=== PATIENT | female | born 1955 | race Caucasian/White ===

== ENCOUNTER 2017-03-31 13:45 | Inpatient (IN) | payer OTHER ==
[2017-03-31] MEDS ORDERED: MORPHINE SULFATE 4 MG/ML SYRINGE IV STA (14:28)
[2017-03-31] MEDS ORDERED: SODIUM CHLORIDE 0.9% 1,000 ML IV ONE (14:28)
[2017-03-31] MEDS ORDERED: IV VANCOMYCIN PER PHARMACY 1 EACH MISC MISCELLANE PRN (14:29)
[2017-03-31] MEDS ORDERED: PIPERACILLIN-TAZOBACTAM 3.375 GM in DEXTROSE/WATER 1 50ML.BAG IVPB STA (14:29)
--- NOTE | 2017-03-31 14:51 | ED ---
Skin/Abscess/FB HPI - General Chief complaint: Skin/Abscess/Foreign Body Stated complaint: Cyst on back Time Seen by Provider: 03/31/17 14:16 Source: patient, RN notes reviewed, old records reviewed Mode of arrival: ambulatory Limitations: no limitations - History of Present Illness Initial comments: Patient is 62-year-old female presenting to the emergency Department chief complaint of abscess over her back for the past 2 weeks. She was seen by her primary care provider Dr. Mcdonough and he did an incision and drainage last Monday. He put her on Bactrim DS. She reports she is taking antibiotics however the abscess is getting somewhat smaller but continued to drain and not getting that much better. Patient went to her primary care doctor earlier today and they sent her here to be admitted for IV antibiotic. Patient has no fever denies any other symptoms besides the pain from the abscess. - Related Data Home Medications Medication Instructions Recorded Confirmed Sulfamethox-Tmp 800-160Mg [Bactrim 1 tab PO Q12HR 03/31/17 03/31/17 DS 800-160 mg] Allergies Allergy/AdvReac Type Severity Reaction Status Date / Time No Known Allergies Allergy Verified 03/31/17 14:14 Review of Systems ROS Statement: Those systems with pertinent positive or pertinent negative responses have been documented in the HPI. ROS Other: All systems not noted in ROS Statement are negative. Past Medical History Past Medical History: No Reported History History of Any Multi-Drug Resistant Organisms: None Reported, MRSA Date of last positivie culture/infection: 03/22/17 MDRO Source:: Buttock Past Surgical History: Section Additional Past Surgical History / Comment(s): ear Past Psychological History: No Psychological Hx Reported Smoking Status: Never smoker Past Alcohol Use History: None Reported Past Drug Use History: None Reported General Exam - General Exam Comments Initial Comments: This is a 62-year-old female. Patient does not appear to be in any acute distress. Limitations: no limitations General appearance: alert, in no apparent distress Head exam: Present: atraumatic, normocephalic, normal inspection Eye exam: Present: normal appearance, PERRL, EOMI. Absent: scleral icterus, conjunctival injection, periorbital swelling ENT exam: Present: normal exam, mucous membranes moist Neck exam: Present: normal inspection. Absent: tenderness, meningismus, lymphadenopathy Respiratory exam: Present: normal lung sounds bilaterally. Absent: respiratory distress, wheezes, rales, rhonchi, stridor Cardiovascular Exam: Present: regular rate, normal rhythm, normal heart sounds. Absent: systolic murmur, diastolic murmur, rubs, gallop, clicks GI/Abdominal exam: Present: soft, normal bowel sounds. Absent: distended, tenderness, guarding, rebound, rigid Extremities exam: Present: normal inspection, full ROM, normal capillary refill. Absent: tenderness, pedal edema, joint swelling, calf tenderness Back exam: Present: other (Patient has a large abscess over the left thoracic spine area measuring approximately 5 cm x 5 cm. Abscess is actively draining.) Neurological exam: Present: alert, oriented X3, CN II-XII intact Psychiatric exam: Present: normal affect, normal mood Skin exam: Present: warm, dry, intact, normal color. Absent: rash Course Vital Signs 03/31/17 03/31/17 13:49 15:02 Temperature 99 F 98.2 F Pulse Rate 68 67 Respiratory 18 18 Rate Blood Pressure 119/67 121/71 O2 Sat by Pulse 98 100 Oximetry Medical Decision Making - Medical Decision Making Patient is 62-year-old female presenting to the emergency Department chief complaint of abscess over her back for the past 2 weeks. She was seen by her primary care provider Dr. Mcdonough and he did an incision and drainage last Monday. He put her on Bactrim DS. She reports she is taking antibiotics however the abscess is getting somewhat smaller but continued to drain and not getting that much better. Patient went to her primary care doctor earlier today , they reopen the abscess again, and they sent her here to be admitted for IV antibiotic. Patient does have a significant abscess over the left side of the thoracic back measuring approximately 5 cm x 5 cm. Patient did receive a wound culture here. I did review her previous wound cultures which did grow positive for MRSA. Patient has been started on Zosyn and vancomycin dosed by pharmacy. We will continue the patient on vancomycin. Patient was also given 4 mg of morphine for pain. Discusses is Dr. Quigley whom discussed with Dr. Em. At this time we will have admitting physician decide if surgery needs be consult it as it is actively draining. Disposition Clinical Impression: Back abscess, MRSA infection Disposition: ADMITTED IP TO THIS HOSP Condition: Stable Referrals: Katarina Mcdonough DO [Primary Care Provider] - 1-2 days Time of Disposition: 15:03
[2017-03-31] MEDS ORDERED: VANCOMYCIN 1,000 MG in SODIUM CHLORIDE 0.9% 250 ML IVPB ONE (15:00)
[2017-03-31] MEDS ORDERED: LORazepam 2 MG/ML SYRINGE IV PRN (15:03)
[2017-03-31] MEDS ORDERED: KETOROLAC 30 MG/ML 1 ML VIAL IVP PRN (15:03)
[2017-03-31] MEDS ORDERED: NALOXONE 0.4 MG/ML 1 ML VIAL IV PRN (15:03)
[2017-03-31] MEDS ORDERED: ACETAMINOPHEN TAB 325 MG TAB PO PRN (15:03)
[2017-03-31] MEDS ORDERED: ONDANSETRON 4 MG/2 ML VIAL IVP PRN (15:03)
[2017-03-31] MEDS ORDERED: MORPHINE SULFATE 4 MG/ML SYRINGE IV PRN (15:03)
[2017-03-31 15:12] LABS: Basophils # (A) 0.1 k/uL (0-0.2); Basophils % (A) 1 %; CH 31.5; CHCM 34.5; Eosinophils % (A) 1 %; HCT 43.7 % (34.0-46.0); HDW 2.68; HGB 14.5 gm/dL (11.4-16.0); Luc # (Auto) 0.18; Luc % (Auto) 2; Lymphocytes # (A) 1.9 k/uL (1.0-4.8); Lymphocytes % (A) 20 %; MCH 30.4 pg (25.0-35.0); MCHC 33.2 g/dL (31.0-37.0); MCV 91.7 fL (80.0-100.0); Mean Platelet Volume 7.7; Monocytes # (A) 0.4 k/uL (0-1.0); Monocytes % (A) 4 %; Neutrophils # (A) 7.3 k/uL (1.3-7.7); Neutrophils % (A) 74 %; RBC 4.76 m/uL (3.80-5.40); RDW 12.9 % (11.5-15.5); WBC 9.8 k/uL (3.8-10.6)
[2017-03-31 15:16] LABS: ALT 37 U/L (9-52); AST 22 U/L (14-36); Alkaline Phosphatase 136 U/L (38-126); Anion Gap 13 mmol/L; Blood Urea Nitrogen 12 mg/dL (7-17); Calcium 9.8 mg/dL (8.4-10.2); Carbon Dioxide 25 mmol/L (22-30); Chloride 99 mmol/L (98-107); Glucose 333 mg/dL (74-99); Non-African American GFR(MDRD) >60 (>60 ml/min/1.73 sqM); Sodium 137 mmol/L (137-145); Total Bilirubin 0.4 mg/dL (0.2-1.3); Total Protein 7.4 g/dL (6.3-8.2)
[2017-03-31 17:07] LABS: Glucose,Whole Blood 289 mg/dL (75-99)
[2017-03-31] MEDS: SODIUM CHLORIDE 0.9% 1,000 ML IV SCH ×2 (17:11→23:34)
[2017-03-31] MEDS ORDERED: INSULIN LISPRO (humaLOG) 300 UNIT/3 ML VIAL SQ ONE (17:38)
[2017-03-31] MEDS ORDERED: TEMAZEPAM 15 MG CAP PO PRN (18:37)
[2017-03-31] MEDS: INSULIN LISPRO (humaLOG) 300 UNIT/3 ML VIAL SQ SCH (21:01)
[2017-03-31] MEDS: HEPARIN SODIUM,PORCINE 5,000 UNIT/ML 1 ML VIAL SQ SCH (21:01)
[2017-03-31 21:06] LABS: Glucose,Whole Blood 217 mg/dL (75-99)
[2017-03-31] MEDS: VANCOMYCIN 750 MG in SODIUM CHLORIDE 0.9% 250 ML IVPB SCH (21:15)
[2017-04-01] MEDS: VANCOMYCIN 750 MG in SODIUM CHLORIDE 0.9% 250 ML IVPB SCH (05:08)
[2017-04-01 06:48] LABS: Glucose,Whole Blood 200 mg/dL (75-99)
[2017-04-01] MEDS: PANTOPRAZOLE 40 MG TABLET PO SCH (07:26)
[2017-04-01] MEDS: HEPARIN SODIUM,PORCINE 5,000 UNIT/ML 1 ML VIAL SQ SCH ×2 (07:26→21:09)
[2017-04-01] MEDS: INSULIN LISPRO (humaLOG) 300 UNIT/3 ML VIAL SQ SCH ×4 (07:27→21:08)
[2017-04-01 08:18] LABS: Basophils % (A) 0 %; CHCM 33.8; Eosinophils # (A) 0.1 k/uL (0-0.7); Eosinophils % (A) 2 %; HDW 2.72; HGB 12.8 gm/dL (11.4-16.0); Luc # (Auto) 0.14; Luc % (Auto) 2; Lymphocytes # (A) 1.3 k/uL (1.0-4.8); Lymphocytes % (A) 15 %; MCH 30.9 pg (25.0-35.0); MCHC 33.5 g/dL (31.0-37.0); MCV 92.2 fL (80.0-100.0); Monocytes # (A) 0.3 k/uL (0-1.0); Monocytes % (A) 4 %; Neutrophils # (A) 6.3 k/uL (1.3-7.7); Neutrophils % (A) 77 %; RBC 4.12 m/uL (3.80-5.40); RDW 12.3 % (11.5-15.5); WBC 8.2 k/uL (3.8-10.6); WBC (Perox) 8.55
[2017-04-01 08:37] LABS: Anion Gap 8 mmol/L; Blood Urea Nitrogen 10 mg/dL (7-17); Calcium 8.1 mg/dL (8.4-10.2); Carbon Dioxide 22 mmol/L (22-30); Chloride 108 mmol/L (98-107); Glucose 191 mg/dL (74-99); Non-African American GFR(MDRD) >60 (>60 ml/min/1.73 sqM); Potassium 4.5 mmol/L (3.5-5.1); Sodium 138 mmol/L (137-145)
--- NOTE | 2017-04-01 09:47 | HP ---
CHIEF COMPLAINTS: Pain and swelling of the back. HISTORY OF PRESENT ILLNESS: This 62-year-old woman with past medical history of multiple medical problems including bronchitis, history of previous MRSA leg infection being followed by Dr. Mcdonough in the outpatient setting was noted to have infection of the back for the last several days. Because of lack of improvement patient went to Dr. Painting office and from Dr. Painting office the patient was directly admitted to [facility] and admitted for further evaluation and treatment. There is no history of fever, rigors. No history of headache, loss of consciousness or seizures. The patient has taken a course of Bactrim. The blood sugar was found to be 333. Hemoglobin A1c was not available. The patient also weighing only 42 pounds and BMI is 18.4. Weight loss is rather gradual according to the family. PAST MEDICAL HISTORY: History of bronchitis, history of MRSA. MEDICATIONS: Bactrim DS 1 p.o. b.i.d. ALLERGIES: None. FAMILY HISTORY: History of dementia in the family. SOCIAL HISTORY: Previous history of smoking. REVIEW OF SYSTEMS: ENT: No diminished hearing or vision. CARDIOVASCULAR: No angina. RESPIRATORY: No shortness of breath, no cough. GI: No nausea. : As mentioned earlier. NERVOUS SYSTEM: No numbness or weakness. ALLERGY/IMMUNOLOGY: No asthma or hayfever. MUSCULOSKELETAL: As mentioned earlier. HEMATOLOGY/ONCOLOGY: No history of anemia. ENDOCRINE: No history of diabetes or hypothyroidism. CONSTITUTIONAL: As mentioned earlier. DERMATOLOGY: Negative. RHEUMATOLOGY: Negative. PSYCHIATRY: As mentioned earlier. PHYSICAL EXAMINATION: The patient is alert and oriented x3. Pulse is 62, blood pressure 111/64, respirations 18, temperature 97.1, pulse ox 99% on room air. HEENT: Conjunctivae normal. NECK: No jugular venous distention. CARDIOVASCULAR: S1, S2. RESPIRATORY: Breath sounds diminished at the bases. A few scattered rhonchi and crackles. ABDOMEN: Soft, nontender, no mass palpable. LEGS: No edema, no swelling. NERVOUS SYSTEM: Higher function as mentioned. Moves all four limbs. Mild diffuse weakness. Mild diffuse wasting also present. SKIN: Left mid-back area rather hard mass with opening on the top with erythematous and no fluctuance, some discharge, is severely tender. Mass present. LYMPHATICS: No lymphadenopathy in the neck, axillae or groin. JOINTS: No active deforming arthropathy. LABS: CBC showed platelets 479, glucose 133. ASSESSMENT: 1. Left back abscess. 2. Diabetes type 2, possibly new onset. 3. Severe protein calorie malnutrition with BMI 18.4. 4. History of bronchitis. RECOMMENDATIONS AND DISCUSSION: In this 62-year-old woman who presented with multiple complex medical issues, we well monitor the patient closely. Continue the current medications. Continue symptomatic treatment. Will initiate broad- spectrum IV antibiotics. The patient is started on vancomycin and Zosyn. Will obtain cultures, blood cultures, pain medications, otherwise repeat labs. DVT prophylaxis. Otherwise symptomatic treatment also will be provided. Guarded prognosis because of multiple complex medical issues. Further recommendations to follow. I would also check hemoglobin A1c, Accu-Cheks a.c. and at bedtime and insulin to scale as well. Will obtain possibly dairy inspector consult as well. Guarded prognosis. Further recommendations to follow. See orders for details. MTDD
[2017-04-01] MEDS: SODIUM CHLORIDE 0.9% 1,000 ML IV SCH ×2 (10:36→21:07)
[2017-04-01 11:59] LABS: Glucose,Whole Blood 235 mg/dL (75-99)
[2017-04-01 12:34] LABS: Hemoglobin A1C 14.3 % (4.2-6.1)
--- NOTE | 2017-04-01 13:04 | P.CONS ---
History of Present Illness - Reason for Consult Consult date: 04/01/17 - Chief Complaint Abscess of back - History of Present Illness 62-year-old female presents to Hospital with a significant lesion that has developed on her back. Painful swelling with a copious amount of drainage. Her related that become worse and constant which she sought care. She was seen by her primary care physician and was directed to hospital. She's now been admitted receiving antibiotic therapy in the infectious disease consult was requested. The patient is a history of tobacco use. She is a very thin slight build. She relates that she tries to eat. She was a site is uncomfortable especially manipulation. She is not having high-grade fever chill rigor sweats but does not feel well. She is unable to lay on the back because it hurts because of the abscess. Review of Systems 62-year-old woman of a thin slight build HEENT:Denies headache or acute visual change. Denies sinus or mouth discomforts. Denies neck stiffness or pain. Denies significant oral cavity pain. Denies difficulty on swallowing. Full dentures Lungs: Chronic cough without sputum production or hemoptysis shortness of breath is at baseline Cardiovascular: Denies significant shortness of breath, chest pain, chest wall pain, orthopnea, dyspnea on exertion, syncope Gastrointestinal:Denies nausea, vomiting, diarrhea, constipation, hematemesis, melena, hematochezia. No no significant change of bowel habit noticed. Musculoskeletal: denies significant myalgias or arthralgias. No new joint swelling. Denies new back pain. Skin: HPI abscess to her back Neuro: Denies headache or visual change. Denies any new onset weakness or difficulty with ambulation. Denies falls or seizures. Psychiatric:Denies anxiety or depression. Endocrine: Denies significant fatigue, denies significant weight loss or weight gain. Past Medical History Past Medical History: No Reported History Additional Past Medical History / Comment(s): BRONCHITIS, "ABCESS ON BACK" History of Any Multi-Drug Resistant Organisms: None Reported, MRSA Year Discovered:: 03/22/17 MDRO Source:: Buttock Past Surgical History: Section, Tonsillectomy Additional Past Surgical History / Comment(s): ear, I&D ABCESS ON BACK, X2 C- SEC Past Anesthesia/Blood Transfusion Reactions: No Reported Reaction Additional Psychological History / Comment(s): lives with her . Stopped smoking 4 years ago. Denied recreational drug use. no travel. No animal exposures. No experience Smoking Status: Former smoker - Past Family History Mother Family Medical History: Dementia Father Family Medical History: Cancer Medications and Allergies Home Medications and Allergies Comment(s): Current Medications Acetaminophen (Tylenol Tab) 650 mg PO Q6HR PRN PRN Reason: Mild Pain or Fever > 100.5 Alprazolam (Xanax) 0.25 mg PO TID PRN PRN Reason: Anxiety Heparin Sodium (Porcine) (Heparin) 5,000 unit SQ Q12HR [facility] Last Admin: 04/01/17 07:26 Dose: 5,000 unit Sodium Chloride (Saline 0.9%) 1,000 mls @ 100 mls/hr IV .Q10H [facility] Last Admin: 04/01/17 10:36 Dose: Not Given Daptomycin 500 mg/ Sodium (Chloride) 50 mls @ 100 mls/hr IV Q24H [facility] Insulin Human Lispro (Humalog) 0 unit SQ ACHS [facility] PRN Reason: Protocol Last Admin: 04/01/17 12:37 Dose: 3 unit Ketorolac Tromethamine (Toradol) 30 mg IVP Q6HR PRN PRN Reason: Moderate Pain Stop: 04/05/17 15:04 Lorazepam (Ativan) 0.5 mg IV Q6HR PRN PRN Reason: Anxiety Morphine Sulfate (Morphine Sulfate (Inj)) 4 mg IV Q4HR PRN PRN Reason: Severe Pain Multivitamins (Theragran) 1 each PO DAILY@1200 PAULETTE Naloxone HCl (Narcan) 0.2 mg IV Q2M PRN PRN Reason: Opioid Reversal Ondansetron HCl (Zofran) 4 mg IVP Q8HR PRN PRN Reason: Nausea And Vomiting Pantoprazole Sodium (Protonix) 40 mg PO AC-BRKFST [facility] Last Admin: 04/01/17 07:26 Dose: 40 mg Temazepam (Restoril) 15 mg PO HS PRN PRN Reason: Insomnia Home Medications Medication Instructions Recorded Confirmed Type Sulfamethox-Tmp 800-160Mg [Bactrim 1 tab PO Q12HR 03/31/17 03/31/17 History DS 800-160 mg] Allergies Allergy/AdvReac Type Severity Reaction Status Date / Time No Known Allergies Allergy Verified 03/31/17 14:14 Physical Exam Vitals: Vital Signs Temp Pulse Pulse Resp BP BP BP 04/01/17 07:00 97.7 F 67 20 124/69 03/31/17 23:00 98.1 F 67 18 107/41 03/31/17 16:40 97.1 F L 62 18 111/65 03/31/17 15:02 98.2 F 67 18 121/71 03/31/17 13:49 99 F 68 18 119/67 Pulse Ox 04/01/17 07:00 99 03/31/17 23:00 96 03/31/17 16:40 99 03/31/17 15:02 100 03/31/17 13:49 98 Intake and Output 03/31/17 04/01/17 04/01/17 22:59 06:59 14:59 Intake Total 400 Balance 400 Intake: Oral 400 Other: Voiding Method Toilet Toilet # Voids 1 62-year-old woman of a slight build HEENT: Anicteric conjunctiva are pink and moist nasal mucosa grossly intact without significant lesions, there is no thrush. Full denture in place no thrush Neck: The neck is supple without significant lymphadenopathy or thyromegaly. Lungs: Symmetrical air entry. Scattered wheezes are noted. No bronchial sounds. No dullness or egophony. Heart: Regular rate and rhythm with an audible S1-S2, no S3 no S4. There is no significant murmur click or rub, PMI was nondisplaced. Abdomen: Positive bowel sounds soft and nontender without palpable masses or organomegaly. There was no guarding or rebound. Extremities: The upper extremities have excellent pulses they are symmetric, no significant petechiae or telangiectasia. No splinter hemorrhages were noted. The lower extremities are free from significant edema. The peripheral pulses were 2+ and symmetric. Neuro: Awake alert oriented to person place and time. There are no acute new gross focal sensory motor deficits. Skin: Reveals evidence of the abscess to the midportion of the spine to the lateral aspect. The large indurated area that is fluctuant. It is tender when the print material is expressed. There is some surrounding erythema. No other lesions are seen. Results CBC & Chem 7: 04/01/17 07:24 04/01/17 07:24 Labs: Abnormal Lab Results - Last 24 Hours (Table) 03/31/17 03/31/17 03/31/17 Range/Units 14:50 14:50 14:50 Plt Count 479 H (150-450) k/uL Chloride (98-107) mmol/L Creatinine 0.50 L (0.52-1.04) mg/dL Glucose 333 H (74-99) mg/dL POC Glucose (mg/dL) (75-99) mg/dL Hemoglobin A1c 14.3 H (4.2-6.1) % Calcium (8.4-10.2) mg/dL Alkaline Phosphatase 136 H (38-126) U/L 03/31/17 03/31/17 04/01/17 Range/Units 17:02 20:48 06:47 Plt Count (150-450) k/uL Chloride (98-107) mmol/L Creatinine (0.52-1.04) mg/dL Glucose (74-99) mg/dL POC Glucose (mg/dL) 289 H 217 H 200 H (75-99) mg/dL Hemoglobin A1c (4.2-6.1) % Calcium (8.4-10.2) mg/dL Alkaline Phosphatase (38-126) U/L 04/01/17 04/01/17 Range/Units 07:24 11:57 Plt Count (150-450) k/uL Chloride 108 H (98-107) mmol/L Creatinine 0.46 L (0.52-1.04) mg/dL Glucose 191 H (74-99) mg/dL POC Glucose (mg/dL) 235 H (75-99) mg/dL Hemoglobin A1c (4.2-6.1) % Calcium 8.1 L (8.4-10.2) mg/dL Alkaline Phosphatase (38-126) U/L Microbiology - Last 24 Hours (Table) 03/31/17 14:25 Gram Stain - Preliminary Back Wound Culture - Preliminary Presumptive MRSA Laboratory Results WBC 8.2 k/uL (3.8-10.6) 04/01/17 07:24 RBC 4.12 m/uL (3.80-5.40) 04/01/17 07:24 Hgb 12.8 gm/dL (11.4-16.0) 04/01/17 07:24 Hct 38.0 % (34.0-46.0) 04/01/17 07:24 MCV 92.2 fL (80.0-100.0) 04/01/17 07:24 MCH 30.9 pg (25.0-35.0) 04/01/17 07:24 MCHC 33.5 g/dL (31.0-37.0) 04/01/17 07:24 RDW 12.3 % (11.5-15.5) 04/01/17 07:24 Plt Count 356 k/uL (150-450) 04/01/17 07:24 Neutrophils % 77 % 04/01/17 07:24 Lymphocytes % 15 % 04/01/17 07:24 Monocytes % 4 % 04/01/17 07:24 Eosinophils % 2 % 04/01/17 07:24 Basophils % 0 % 04/01/17 07:24 Neutrophils # 6.3 k/uL (1.3-7.7) 04/01/17 07:24 Lymphocytes # 1.3 k/uL (1.0-4.8) 04/01/17 07:24 Monocytes # 0.3 k/uL (0-1.0) 04/01/17 07:24 Eosinophils # 0.1 k/uL (0-0.7) 04/01/17 07:24 Basophils # 0.0 k/uL (0-0.2) 04/01/17 07:24 Sodium 138 mmol/L (137-145) 04/01/17 07:24 Potassium 4.5 mmol/L (3.5-5.1) 04/01/17 07:24 Chloride 108 mmol/L (98-107) H 04/01/17 07:24 Carbon Dioxide 22 mmol/L (22-30) 04/01/17 07:24 Anion Gap 8 mmol/L 04/01/17 07:24 BUN 10 mg/dL (7-17) 04/01/17 07:24 Creatinine 0.46 mg/dL (0.52-1.04) L 04/01/17 07:24 Est GFR (MDRD) Af Amer >60 (>60 ml/min/1.73 sqM) 04/01/17 07:24 Est GFR (MDRD) Non-Af >60 (>60 ml/min/1.73 sqM) 04/01/17 07:24 Glucose 191 mg/dL (74-99) H 04/01/17 07:24 POC Glucose (mg/dL) 235 mg/dL (75-99) H 04/01/17 11:57 POC Glu Executive Personal Assistant ID Dory Chu 04/01/17 11:[address] Glu mg/dL 364 mg/dL 03/31/17 14:50 Hemoglobin A1c 14.3 % (4.2-6.1) H 03/31/17 14:50 Calcium 8.1 mg/dL (8.4-10.2) L 04/01/17 07:24 Total Bilirubin 0.4 mg/dL (0.2-1.3) 03/31/17 14:50 AST 22 U/L (14-36) 03/31/17 14:50 ALT 37 U/L (9-52) 03/31/17 14:50 Alkaline Phosphatase 136 U/L (38-126) H 03/31/17 14:50 Total Protein 7.4 g/dL (6.3-8.2) 03/31/17 14:50 Albumin 4.0 g/dL (3.5-5.0) 03/31/17 14:50 Microbiology 03/31/17 14:25 Back Gram Stain - Preliminary 03/31/17 14:25 Back Wound Culture - Preliminary Presumptive MRSA Assessment and Plan (1) MRSA infection Narrative/Plan: 62-year-old female presents to Hospital with significant new abscess formation to her back. Despite some local wound care was worsening. She seen by her primary care physician directed to the hospital. Upon arrival there is evidence of unknown diabetes mellitus that is uncontrolled. Blood sugars are greater than 300. Hemoglobin A1c is greater than 14. It is discussed with the patient that her uncontrolled diabetes is the etiology of her underlying abscesses. Skin abscesses or a common finding in patients with untreated diabetes. Pulmonary data and prior data shows evidence of MRSA infection. The prior BRANDON to vancomycin was 2. Consequentially vancomycin is discontinued and daptomycin as initiated. Local wound care will be utilized with hydrogel it can be changed daily. May need a surgical incision and drainage if does not rapidly improve with antibiotic therapy. Multivitamin with zinc is added Protein supplement is added Status: Acute
[2017-04-01] MEDS: MULTIVITAMINS, THERA 1 EACH TAB PO SCH (14:09)
[2017-04-01] MEDS: DAPTOmycin 500 MG in SODIUM CHLORIDE 0.9% 50 ML IV SCH (14:09)
[2017-04-01] MEDS ORDERED: PIPERACILLIN-TAZOBACTAM 3.375 GM in DEXTROSE/WATER 1 50ML.BAG IVPB SCH (16:00)
[2017-04-01 16:03] VITALS: BMI 18.3
[2017-04-01 17:08] LABS: Glucose,Whole Blood 180 mg/dL (75-99)
--- NOTE | 2017-04-01 17:21 | XR ---
EXAMINATION TYPE: XR chest 1V portable DATE OF EXAM: 04/01/2017 COMPARISON: Prior chest x-ray 11/28/2011 HISTORY: Abscess TECHNIQUE: Single frontal view of the chest is obtained. FINDINGS: There is no focal air space opacity, pleural effusion, or pneumothorax seen. Patient is ro tated. The cardiac silhouette size is within normal limits. The osseous structures are intact. IMPRESSION: No acute process.
--- NOTE | 2017-04-01 20:11 | PN ---
DATE OF SERVICE: This 62-year-old woman was admitted with pain and swelling of the back, is being closely monitored. No chest pain. No palpitations, no fever. Dr. Wheeler has seen the patient from infectious point of view and recommended Daptomycin. The current cultures show presumptive MRSA. No chest pain. No palpitations. No fever. Past medical history reviewed. REVIEW OF SYSTEMS: Cardiovascular: No angina or palpitations. Respiratory: As mentioned earlier. GI: As mentioned earlier. : No dysuria. NERVOUS SYSTEM: No numbness or weakness. Endocrine: Hemoglobin A1C 14 ). Current medications are reviewed and include: 1. Tylenol 650 q6h prn. 2. Xanax 0.25 t.i.d. 4. Lantus 25 units subcu q.h.s. 5. Toradol prn. 6. Morphine. 7. Narcan. 8. Zofran. PHYSICAL EXAMINATION: On exam, alert and oriented times three. Pulse 64. Blood pressure 108/61. Respiratory rate 16. Temperature 98.4. Pulse ox 100% on room air. HEENT: Conjunctivae normal. Oral mucosa moist. NECK: No JVD. No carotid bruit. No lymph node enlargement. Cardiovascular: S1, S2 muffled. No S3, no S4. Respiratory: Breath sounds diminished at the bases. No rhonchi. No crackles. Abdomen soft. Nontender. No mass palpable. Legs, no edema. No swelling. Nervous system: higher functions as mentioned earlier. Moves all four limbs. No focal deficits. LYMPHATICS: No lymph nodes palpable in the neck, axillae or groin. SKIN: No ulcer, rash or bleeding. Labs: CBC within normal limits. Sodium 138. Potassium 4.5, glucose 191 and 235. Calcium 8.1. ASSESSMENT: 1. Left sided back abscess, possible MRSA. 2. Diabetes type 2, possibly new onset. 3. Hemoglobin A1c 14.3. 4. History of protein calorie malnutrition with BMI 18.2. 5. History of bronchitis. RECOMMENDATIONS AND DISCUSSION: Continue the current medications, continue with monitoring, symptomatic treatment. Lantus has been initiated. Daptomycin. Guarded prognosis because of multiple medical issues. Otherwise, the patient has persistent abscess. I would also recommend chest x- ray completing the workup. Further recommendations to follow. MTDD
[2017-04-01 20:50] LABS: Glucose,Whole Blood 266 mg/dL (75-99)
[2017-04-01] MEDS ORDERED: VANCOMYCIN TROUGH DUE 1 EACH MISC MISCELLANE ONE (21:00)
[2017-04-01] MEDS ORDERED: INSULIN GLARGINE 100 UNIT/ML 10 ML VIAL SQ SCH (21:00)
[2017-04-01] MEDS: ALPRAZolam 0.25 MG TAB PO PRN (21:08)
[2017-04-02] MEDS: SODIUM CHLORIDE 0.9% 1,000 ML IV SCH ×2 (05:59→14:02)
[2017-04-02 07:26] LABS: Glucose,Whole Blood 159 mg/dL (75-99)
[2017-04-02] MEDS: MULTIVITAMINS, THERA 1 EACH TAB PO SCH (07:45)
[2017-04-02] MEDS: HEPARIN SODIUM,PORCINE 5,000 UNIT/ML 1 ML VIAL SQ SCH ×2 (07:45→21:40)
[2017-04-02] MEDS: PANTOPRAZOLE 40 MG TABLET PO SCH (07:45)
[2017-04-02 07:46] LABS: Basophils % (A) 0 %; CHCM 33.4; Eosinophils # (A) 0.1 k/uL (0-0.7); Eosinophils % (A) 1 %; HDW 2.73; HGB 14.2 gm/dL (11.4-16.0); Luc # (Auto) 0.16; Luc % (Auto) 2; Lymphocytes # (A) 1.5 k/uL (1.0-4.8); Lymphocytes % (A) 23 %; MCH 30.7 pg (25.0-35.0); MCHC 32.9 g/dL (31.0-37.0); MCV 93.2 fL (80.0-100.0); Mean Platelet Volume 6.9; Monocytes # (A) 0.3 k/uL (0-1.0); Monocytes % (A) 4 %; Neutrophils # (A) 4.5 k/uL (1.3-7.7); Neutrophils % (A) 69 %; RBC 4.61 m/uL (3.80-5.40); RDW 12.4 % (11.5-15.5); WBC 6.5 k/uL (3.8-10.6); WBC (Perox) 6.14
[2017-04-02] MEDS: INSULIN LISPRO (humaLOG) 300 UNIT/3 ML VIAL SQ SCH ×4 (07:46→21:41)
[2017-04-02 08:12] LABS: Anion Gap 7 mmol/L; Blood Urea Nitrogen 5 mg/dL (7-17); Calcium 8.8 mg/dL (8.4-10.2); Carbon Dioxide 24 mmol/L (22-30); Chloride 108 mmol/L (98-107); Glucose 194 mg/dL (74-99); Non-African American GFR(MDRD) >60 (>60 ml/min/1.73 sqM); Potassium 4.4 mmol/L (3.5-5.1); Sodium 139 mmol/L (137-145)
[2017-04-02 12:11] LABS: Glucose,Whole Blood 344 mg/dL (75-99)
[2017-04-02] MEDS: DAPTOmycin 500 MG in SODIUM CHLORIDE 0.9% 50 ML IV SCH (12:24)
[2017-04-02 16:59] LABS: Glucose,Whole Blood 194 mg/dL (75-99)
--- NOTE | 2017-04-02 20:22 | PN ---
DATE OF SERVICE: 04/02/17 This 62-year-old woman who was admitted with abscess of the back and new onset diabetes mellitus Type 2, has MRSA grown from the culture. No chest pain. No palpitations. No fever. Chest x-ray negative. PHYSICAL EXAMINATION: The patient is alert and oriented times three. Pulse 77. Blood pressure 129/81. Respiratory rate 16. Temperature 98.4 degrees. Pulse ox 99% on room air. HEENT: Conjunctivae normal. NECK: No JVD. CARDIOVASCULAR: S1, S2 muffled. RESPIRATORY: Breath sounds diminished at the bases. A few rhonchi and no crackles. ABDOMEN: Soft, nontender. Examination of the back, swelling and abscess which is incision and drained in the ER. SKIN: No ulcer, rash or bleeding. LEGS: No edema. No swelling. NERVOUS SYSTEM: No focal deficits. LABS: CBC, BMP noted. Accu-Cheks 344. ASSESSMENT: 1. Left sided back abscess, possible MRSA. 2. Diabetes mellitus, Type 2, new onset, uncontrolled. 3. Hemoglobin A1c 14.3. 4. Protein calorie malnutrition with 18.2 mild to moderate. 5. History of bronchitis. RECOMMENDATIONS AND DISCUSSION: Continue current medications, continue with symptomatic treatment. Otherwise, at this time, I recommend continue with antibiotics. I would also recommend increase the dose of Lantus to 35 tonight. Continue to monitor. Further recommendations to follow. MTDD
[2017-04-02 21:40] LABS: Glucose,Whole Blood 238 mg/dL (75-99)
[2017-04-02] MEDS: INSULIN GLARGINE 100 UNIT/ML 10 ML VIAL SQ SCH (21:41)
[2017-04-03 02:24] LABS: Glucose,Whole Blood 90 mg/dL (75-99)
[2017-04-03] MEDS: SODIUM CHLORIDE 0.9% 1,000 ML IV SCH ×3 (05:37→21:00)
[2017-04-03 07:44] LABS: Glucose,Whole Blood 92 mg/dL (75-99)
[2017-04-03] MEDS: INSULIN LISPRO (humaLOG) 300 UNIT/3 ML VIAL SQ SCH ×5 (07:45→20:59)
[2017-04-03] MEDS: PANTOPRAZOLE 40 MG TABLET PO SCH (07:46)
[2017-04-03] MEDS: HEPARIN SODIUM,PORCINE 5,000 UNIT/ML 1 ML VIAL SQ SCH ×2 (07:46→21:00)
[2017-04-03 08:28] LABS: Basophils % (A) 0 %; CH 31.4; CHCM 34.2; Eosinophils # (A) 0.1 k/uL (0-0.7); Eosinophils % (A) 1 %; HCT 40.4 % (34.0-46.0); HDW 2.67; HGB 13.2 gm/dL (11.4-16.0); Luc # (Auto) 0.12; Luc % (Auto) 2; Lymphocytes # (A) 1.7 k/uL (1.0-4.8); Lymphocytes % (A) 23 %; MCH 30.1 pg (25.0-35.0); MCHC 32.6 g/dL (31.0-37.0); MCV 92.3 fL (80.0-100.0); Mean Platelet Volume 7.7; Monocytes # (A) 0.4 k/uL (0-1.0); Monocytes % (A) 5 %; Neutrophils # (A) 5.1 k/uL (1.3-7.7); Neutrophils % (A) 70 %; RBC 4.37 m/uL (3.80-5.40); WBC 7.3 k/uL (3.8-10.6)
[2017-04-03 08:39] LABS: Anion Gap 7 mmol/L; Blood Urea Nitrogen 6 mg/dL (7-17); Calcium 8.7 mg/dL (8.4-10.2); Carbon Dioxide 25 mmol/L (22-30); Chloride 107 mmol/L (98-107); Glucose 85 mg/dL (74-99); Non-African American GFR(MDRD) >60 (>60 ml/min/1.73 sqM); Potassium 4.1 mmol/L (3.5-5.1); Sodium 139 mmol/L (137-145)
[2017-04-03 11:37] LABS: Glucose,Whole Blood 266 mg/dL (75-99)
[2017-04-03] MEDS: MULTIVITAMINS, THERA 1 EACH TAB PO SCH (12:21)
--- NOTE | 2017-04-03 13:09 | P.PN ---
Subjective Date of service 04/03/2017. Progress note being dictated for Dr. Jordan. Interval history: This is a 62-year-old female admitted with back abscess- positive for MRSA, new onset diabetes mellitus and multiple other medical issues. Maintained on IV antibiotics as per infectious disease. Significant darkened yellow drainage noted. Afebrile with normal WBC. Met with consumer educator. Blood sugars uncontrolled. Ambulating, tolerating increase in exertion well. Denies chest pain, palpitations or an increase in shortness of breath. Objective - Vital Signs Vital signs: Vital Signs Temp 97.5 F L 04/03/17 07:00 Pulse 81 04/03/17 07:00 Resp 16 04/03/17 07:00 BP 119/72 04/03/17 07:00 Pulse Ox 98 04/03/17 07:00 Intake & Output 04/02/17 04/03/17 04/03/17 18:59 06:59 18:59 Intake Total 540 Balance 540 Intake: Oral 540 Other: Voiding Method Toilet # Voids 2 1 # Bowel Movements 0 - Exam PHYSICAL EXAM: VITAL SIGNS: As above GENERAL: [Sitting up in bed, no acute distress] HEENT: [Pupils equal conjunctiva normal. Oral mucosa moist] NECK: [Supple, no JVD] RESPIRATORY EFFORT:[ Normal] LUNGS: [Bilateral bases diminished, occasional scattered rhonchi, no wheezes or crackles] CARDIOVASCULAR[ regular S1 and S2, no murmurs rubs or gallops, no edema] GI: [Abdomen soft, nontender, positive bowel sounds.] PSYCH: [Alert and oriented -3, mood and affect normal.] SKIN: Back dressing removed, revealing dark and yellow drainage-significant, reddened, edema, status post I&D NEURO: No focal deficits, as all 4 extremities, strength and sensation grossly intact. Microbiology 03/31/17 14:50 Blood Blood Culture - Preliminary No Growth after 48 hours 03/31/17 14:25 Back Gram Stain - Final 03/31/17 14:25 Back Wound Culture - Final Methicillin resist S. aureus - Labs CBC & Chem 7: 04/03/17 07:38 04/03/17 07:38 Labs: Abnormal Lab Results - Last 24 Hours (Table) 04/02/17 04/02/17 04/03/17 Range/Units 16:56 21:32 07:38 BUN 6 L (7-17) mg/dL Creatinine 0.38 L (0.52-1.04) mg/dL POC Glucose (mg/dL) 194 H 238 H (75-99) mg/dL 04/03/17 Range/Units 11:34 BUN (7-17) mg/dL Creatinine (0.52-1.04) mg/dL POC Glucose (mg/dL) 266 H (75-99) mg/dL Microbiology - Last 24 Hours (Table) 03/31/17 14:50 Blood Culture - Preliminary Blood No Growth after 48 hours 03/31/17 14:25 Gram Stain - Final Back Wound Culture - Final Methicillin resist S. aureus Assessment and Plan Plan: 1. Left-sided back abscess, positive for MRSA. 2. [ New-onset diabetes mellitus type 2, uncontrolled]. 3. [ Hemoglobin A1c 14.3]. 4. [ Protein calorie malnutrition, mild to moderate, 18.4]. Plan: Continue on current medication regime ,monitoring and symptomatic treatment. Antibiotics as per infectious disease. Possible repeat I&D-defer to ID. 2 units pre-meal insulin added to med regime. Was monitoring of Accu- Cheks. Further recommendations to follow. The impression and plan of care has been dictated as directed. : I performed a H&P examination of this patient and discussed the same with the dictator. I agree with the dictator's note. Any additional findings/opinions/ etc. will be noted.
[2017-04-03] MEDS: DAPTOmycin 500 MG in SODIUM CHLORIDE 0.9% 50 ML IV SCH (13:39)
[2017-04-03 17:18] LABS: Glucose,Whole Blood 151 mg/dL (75-99)
--- NOTE | 2017-04-03 20:15 | P.PN ---
Subjective Principal diagnosis: Abscess of back 62-year-old female presents to Hospital with a significant lesion that has developed on her back. Painful swelling with a copious amount of drainage. Her related that become worse and constant which she sought care. She was seen by her primary care physician and was directed to hospital. She's now been admitted receiving antibiotic therapy in the infectious disease consult was requested. The patient is a history of tobacco use. She is a very thin slight build. She relates that she tries to eat. She was a site is uncomfortable especially manipulation. She is not having high-grade fever chill rigor sweats but does not feel well. More comfortable today. Much less discomfort. Objective - Vital Signs Vital signs: Vital Signs Temp 97.6 F 04/03/17 15:00 Pulse 83 04/03/17 15:00 Resp 20 04/03/17 15:00 BP 123/66 04/03/17 15:00 Pulse Ox 100 04/03/17 15:00 Intake & Output 04/03/17 04/03/17 04/04/17 06:59 18:59 06:59 Other: # Voids 1 2 # Bowel Movements 0 - Exam 62-year-old woman of a slight build HEENT: Anicteric conjunctiva are pink and moist nasal mucosa grossly intact without significant lesions, there is no thrush. Full denture in place no thrush Neck: The neck is supple without significant lymphadenopathy or thyromegaly. Lungs: Symmetrical air entry. Scattered wheezes are noted. No bronchial sounds. No dullness or egophony. Heart: Regular rate and rhythm with an audible S1-S2, no S3 no S4. There is no significant murmur click or rub, PMI was nondisplaced. Abdomen: Positive bowel sounds soft and nontender without palpable masses or organomegaly. There was no guarding or rebound. Extremities: The upper extremities have excellent pulses they are symmetric, no significant petechiae or telangiectasia. No splinter hemorrhages were noted. The lower extremities are free from significant edema. The peripheral pulses were 2+ and symmetric. Neuro: Awake alert oriented to person place and time. There are no acute new gross focal sensory motor deficits. Skin: Reveals evidence of the abscess to the midportion of the spine to the lateral aspect. The large indurated area that was fluctuant is now tender with minimal expressible drainage. No other lesions are seen. It is improved. - Labs CBC & Chem 7: 04/03/17 07:38 04/03/17 07:38 Labs: Abnormal Lab Results - Last 24 Hours (Table) 04/02/17 04/03/17 04/03/17 Range/Units 21:32 07:38 11:34 BUN 6 L (7-17) mg/dL Creatinine 0.38 L (0.52-1.04) mg/dL POC Glucose (mg/dL) 238 H 266 H (75-99) mg/dL 04/03/17 Range/Units 17:17 BUN (7-17) mg/dL Creatinine (0.52-1.04) mg/dL POC Glucose (mg/dL) 151 H (75-99) mg/dL Microbiology - Last 24 Hours (Table) 03/31/17 14:50 Blood Culture - Preliminary Blood No Growth after 72 hours Laboratory Results WBC 7.3 k/uL (3.8-10.6) 04/03/17 07:38 RBC 4.37 m/uL (3.80-5.40) 04/03/17 07:38 Hgb 13.2 gm/dL (11.4-16.0) 04/03/17 07:38 Hct 40.4 % (34.0-46.0) 04/03/17 07:38 MCV 92.3 fL (80.0-100.0) 04/03/17 07:38 MCH 30.1 pg (25.0-35.0) 04/03/17 07:38 MCHC 32.6 g/dL (31.0-37.0) 04/03/17 07:38 RDW 13.0 % (11.5-15.5) 04/03/17 07:38 Plt Count 410 k/uL (150-450) 04/03/17 07:38 Neutrophils % 70 % 04/03/17 07:38 Lymphocytes % 23 % 04/03/17 07:38 Monocytes % 5 % 04/03/17 07:38 Eosinophils % 1 % 04/03/17 07:38 Basophils % 0 % 04/03/17 07:38 Neutrophils # 5.1 k/uL (1.3-7.7) 04/03/17 07:38 Lymphocytes # 1.7 k/uL (1.0-4.8) 04/03/17 07:38 Monocytes # 0.4 k/uL (0-1.0) 04/03/17 07:38 Eosinophils # 0.1 k/uL (0-0.7) 04/03/17 07:38 Basophils # 0.0 k/uL (0-0.2) 04/03/17 07:38 Sodium 139 mmol/L (137-145) 04/03/17 07:38 Potassium 4.1 mmol/L (3.5-5.1) 04/03/17 07:38 Chloride 107 mmol/L (98-107) 04/03/17 07:38 Carbon Dioxide 25 mmol/L (22-30) 04/03/17 07:38 Anion Gap 7 mmol/L 04/03/17 07:38 BUN 6 mg/dL (7-17) L 04/03/17 07:38 Creatinine 0.38 mg/dL (0.52-1.04) L 04/03/17 07:38 Est GFR (MDRD) Af Amer >60 (>60 ml/min/1.73 sqM) 04/03/17 07:38 Est GFR (MDRD) Non-Af >60 (>60 ml/min/1.73 sqM) 04/03/17 07:38 Glucose 85 mg/dL (74-99) 04/03/17 07:38 POC Glucose (mg/dL) 151 mg/dL (75-99) H 04/03/17 17:17 POC Glu Animal Ride Manager ID Dory Chu 04/03/17 17:[address] Glu mg/dL 364 mg/dL 03/31/17 14:50 Hemoglobin A1c 14.3 % (4.2-6.1) H 03/31/17 14:50 Calcium 8.7 mg/dL (8.4-10.2) 04/03/17 07:38 Total Bilirubin 0.4 mg/dL (0.2-1.3) 03/31/17 14:50 AST 22 U/L (14-36) 03/31/17 14:50 ALT 37 U/L (9-52) 03/31/17 14:50 Alkaline Phosphatase 136 U/L (38-126) H 03/31/17 14:50 Total Protein 7.4 g/dL (6.3-8.2) 03/31/17 14:50 Albumin 4.0 g/dL (3.5-5.0) 03/31/17 14:50 Microbiology 03/31/17 14:50 Blood Blood Culture - Preliminary No Growth after 72 hours 03/31/17 14:25 Back Gram Stain - Final 03/31/17 14:25 Back Wound Culture - Final Methicillin resist S. aureus Assessment and Plan (1) MRSA infection Narrative/Plan: 62-year-old female presents to Hospital with significant new abscess formation to her back. Despite some local wound care was worsening. She seen by her primary care physician directed to the hospital. Upon arrival there is evidence of unknown diabetes mellitus that is uncontrolled. Blood sugars are greater than 300. Hemoglobin A1c is greater than 14. It is discussed with the patient that her uncontrolled diabetes is the etiology of her underlying abscesses. Skin abscesses or a common finding in patients with untreated diabetes. Pulmonary data and prior data shows evidence of MRSA infection. The prior BRANDON to vancomycin was 2. Consequentially vancomycin is discontinued and daptomycin as initiated. Local wound care will be utilized with hydrogel it can be changed daily. The site is improving, it has drained relatively well, there is no fluctuance palpated. If improved in the morning would not need incision and drainage and may do well for oral antibiotic therapy with control of her blood sugars. The patient is educated that her untreated diabetes is the cause of the current infection. Multivitamin with zinc is added Protein supplement is added Status: Acute
[2017-04-03 20:57] LABS: Glucose,Whole Blood 194 mg/dL (75-99)
[2017-04-03] MEDS: INSULIN GLARGINE 100 UNIT/ML 10 ML VIAL SQ SCH (21:00)
[2017-04-03] MEDS: ALPRAZolam 0.25 MG TAB PO PRN (21:21)
[2017-04-04 02:25] LABS: Glucose,Whole Blood 61 mg/dL (75-99)
[2017-04-04 02:42] LABS: Glucose,Whole Blood 59 mg/dL (75-99)
[2017-04-04 02:54] LABS: Glucose,Whole Blood 70 mg/dL (75-99)
[2017-04-04 03:16] LABS: Glucose,Whole Blood 156 mg/dL (75-99)
[2017-04-04 07:05] LABS: Glucose,Whole Blood 172 mg/dL (75-99)
[2017-04-04] MEDS: PANTOPRAZOLE 40 MG TABLET PO SCH (08:00)
[2017-04-04] MEDS: INSULIN LISPRO (humaLOG) 300 UNIT/3 ML VIAL SQ SCH ×4 (08:00→12:47)
[2017-04-04] MEDS: HEPARIN SODIUM,PORCINE 5,000 UNIT/ML 1 ML VIAL SQ SCH (08:06)
[2017-04-04 08:26] LABS: Basophils % (A) 0 %; CH 31.5; CHCM 33.8; Eosinophils % (A) 1 %; HCT 41.7 % (34.0-46.0); HDW 2.75; HGB 13.6 gm/dL (11.4-16.0); Luc # (Auto) 0.11; Luc % (Auto) 2; Lymphocytes # (A) 1.3 k/uL (1.0-4.8); Lymphocytes % (A) 19 %; MCH 30.4 pg (25.0-35.0); MCHC 32.5 g/dL (31.0-37.0); MCV 93.5 fL (80.0-100.0); Mean Platelet Volume 7.2; Monocytes # (A) 0.4 k/uL (0-1.0); Monocytes % (A) 5 %; Neutrophils # (A) 4.9 k/uL (1.3-7.7); Neutrophils % (A) 73 %; RBC 4.46 m/uL (3.80-5.40); RDW 13.2 % (11.5-15.5); WBC 6.7 k/uL (3.8-10.6)
[2017-04-04 08:37] LABS: Anion Gap 8 mmol/L; Blood Urea Nitrogen 7 mg/dL (7-17); Calcium 9.2 mg/dL (8.4-10.2); Carbon Dioxide 28 mmol/L (22-30); Chloride 103 mmol/L (98-107); Glucose 202 mg/dL (74-99); Non-African American GFR(MDRD) >60 (>60 ml/min/1.73 sqM); Potassium 4.3 mmol/L (3.5-5.1); Sodium 139 mmol/L (137-145)
[2017-04-04] MEDS: SODIUM CHLORIDE 0.9% 1,000 ML IV SCH ×2 (09:25→12:19)
[2017-04-04 11:43] LABS: Glucose,Whole Blood 157 mg/dL (75-99)
[2017-04-04] MEDS: DAPTOmycin 500 MG in SODIUM CHLORIDE 0.9% 50 ML IV SCH (12:19)
[2017-04-04] MEDS: MULTIVITAMINS, THERA 1 EACH TAB PO SCH (12:19)
[2017-04-04 14:46] VITALS: BP 132/72; PULSE 88; RESP 14; TEMP 98.8
--- NOTE | 2017-04-06 17:00 | DS ---
FINAL DIAGNOSES: 1. Left sided back abscess MRSA. 2. New onset diabetes mellitus Type 2, uncontrolled. 3. Hemoglobin A1C 14.2. 4. Protein calorie malnutrition mild to moderate BMI 18.4 DISCHARGE DISPOSITION: The patient is being discharged in stable condition with guarded prognosis. HISTORY OF PRESENT ILLNESS: This 62-year-old woman with past medical history of multiple medical problems, admitted with MRSA abscess. The patient treated with IV antibiotics. Infectious disease saw the patient. Hemoglobin elevated. Lantus was given. Significant improvement. DISCHARGE ADVICE AND MEDICATIONS: 1. Diet is consistent carb. 2. Activity limited until follow-up. 3. Follow-up with Dr. Jones in two to three days. 4. Follow-up with infectious disease as recommended. Medications are: 1. Lantus 25 units subcu q.h.s. 2. Accu-Cheks a.c. as at home and results to Dr. Jones. 3. Multivitamins one po daily. 4. 2% topical application. 5. Protonix 40 mg a.c. breakfast. 6. Bactrim DS one po b.i.d. for ten days. MTDD
== END 2017-04-04 17:37 | disposition home or self-care (01) | DRG 603 ==
LOC: EC 13:45 → 4MS4W 15:18
PROVIDERS: ADMIT Hospitalist; ATTEND Hospitalist
DX: L02.212 Cutaneous abscess of back [any part, except buttock and flank] (principal); E44.0 Moderate protein-calorie malnutrition; Z68.1 Body mass index [BMI] 19.9 or less, adult; E11.65 Type 2 diabetes mellitus with hyperglycemia; B95.62 Methicillin resistant Staphylococcus aureus infection as the cause of diseases classified elsewhere; Z87.891 Personal history of nicotine dependence
CPT/HCPCS: 36415; 71010; 80048; 80053; 83036; 85025; 87040; 87070; 87077; 87186; 87205; 96365; 99284

== ENCOUNTER → 2020-09-18 | Outpatient (CLI) | payer OTHER ==
--- NOTE | 2020-09-18 13:48 | US ---
EXAMINATION TYPE: US thyroid st tissue head/neck DATE OF EXAM: 09/18/2020 COMPARISON: NONE CLINICAL HISTORY: E03.9 Hypothyroidism. hypothyroidism GLAND SIZE: Right Lobe: 3.9 x 1.4 x 1.8 cm Overall Parenchyma: heterogenous Left Lobe: 4.3 x 1.8 x 1.7 cm Overall Parenchyma: heterogeneous Isthmus Thickness: 0.3 cm NODULES RIGHT: # of nodules measured on right: 0 LEFT: # of nodules measured on left: 0 ISTHMUS: # of nodules measured in the isthmus: 0 Bilateral neck scanned, no evidence of lymphadenopathy. Markedly heterogeneous somewhat small size thyroid without discrete nodule. IMPRESSION: As above .
== END | disposition home or self-care (01) ==
LOC: RADUSWWP 13:20
PROVIDERS: ATTEND Family Medicine
DX: E07.89 Other specified disorders of thyroid (principal)
CPT/HCPCS: 76536

== ENCOUNTER 2020-10-05 06:46 | Day surgery (SDC) | payer OTHER ==
[2020-10-01 09:27] VITALS: BMI 20.5
[2020-10-05] MEDS ORDERED: LACTATED RINGERS 1,000 ML IV SCH (07:04)
[2020-10-05] MEDS ORDERED: LIDOCAINE 1% (10MG/ML) FOR IV START INTRADERMA PRN (07:04)
[2020-10-05 07:14] VITALS: RESP 16; TEMP 98.8
[2020-10-05 07:25] LABS: Glucose,Whole Blood 160 mg/dL (75-99)
[2020-10-05] MEDS ORDERED: PROPOFOL 10 MG/ML 20 ML VIAL IV ONE (07:45)
--- NOTE | 2020-10-05 08:21 | P.PCN ---
Date of Procedure: 10/05/20 Description of Procedure: BRIEF HISTORY: Patient is a 65-year-old female presenting for outpatient colonoscopy for screening for malignant neoplasm colon. No family history of colon cancer. No prior colonoscopies. No change in bowel habits. PROCEDURE PERFORMED: Colonoscopy with polypectomy. PREOPERATIVE DIAGNOSIS: Screening for malignant neoplasm of the colon, no prior colonoscopy. ESTIMATED BLOOD LOSS: Minimal. IV sedation per Anesthesia. PROCEDURE: After informed consent was obtained, the patient, was brought into the endoscopy unit. IV sedation was administered by Anesthesia under continuous monitoring. Digital rectal examination was normal. Initially the Olympus CF-190 flexible video colonoscope was then inserted in the rectum, gradually advanced into the cecum without any difficulty. Careful examination was performed as the scope was gradually being withdrawn. Ileocecal valve and the appendiceal orifice were visualized and appeared normal. Prep was excellent. Mucosa of the cecum, ascending colon, transverse colon, descending colon, sigmoid colon, and rectum appeared normal. 2 polyps measuring 4 mm and 5 mm in size removed from the cecum and the transverse colon using cold snare polypectomy. A few scattered diverticula noted in the sigmoid colon. Retroflexion was performed in the rectum and no lesions were seen, low-grade internal hemorrhoids. The patient tolerated the procedure well. IMPRESSION: 2 polyps removed with cold snare polypectomy from the cecum and transverse colon. Mild sigmoid diverticulosis. Internal hemorrhoids. RECOMMENDATIONS: Findings of this examination were discussed with the patient. Okay to resume diet. Okay to resume medications. Await pathology from polypectomies. Recommend repeat colonoscopy in 5 years for history of colon polyps pending pathology from polypectomies.
[2020-10-05 08:29] VITALS: BP 141/72; PULSE 76
== END 2020-10-05 09:01 | disposition home or self-care (01) ==
LOC: ORWHC2ENDO 06:46
PROVIDERS: ATTEND Internal Medicine
DX: Z12.11 Encounter for screening for malignant neoplasm of colon (principal); D12.0 Benign neoplasm of cecum; D12.3 Benign neoplasm of transverse colon; K57.30 Diverticulosis of large intestine without perforation or abscess without bleeding; K64.8 Other hemorrhoids; I10 Essential (primary) hypertension; E78.5 Hyperlipidemia, unspecified; E11.9 Type 2 diabetes mellitus without complications; Z79.84 Long term (current) use of oral hypoglycemic drugs; Z79.899 Other long term (current) drug therapy; Z98.891 History of uterine scar from previous surgery; Z98.890 Other specified postprocedural states; Z87.891 Personal history of nicotine dependence
CPT/HCPCS: 88305; 45385; J2704

== ENCOUNTER → 2020-10-21 | Outpatient (CLI) | payer OTHER ==
--- NOTE | 2020-10-22 12:33 | MM ---
Reason for exam: screening (asymptomatic). Baseline mammogram. History: Patient is postmenopausal. Physical Findings: Nurse did not find any significant physical abnormalities on exam. MG Screening Mammo w CAD Bilateral CC and MLO view(s) were taken. The breast tissue is extremely dense which could obscure a lesion on mammography. Benign vascular and oil cyst calcifications. Superior left subareolar asymmetric density could represent superimposition shadow but further evaluation is recommended. ASSESSMENT: Incomplete: need additional imaging evaluation, BI-RAD 0 RECOMMENDATION: Special view mammogram of the left breast. (3D) If lesion persists on supplemental views, image directed ultrasound is recommended. [facility] will attempt to contact patient to return for supplemental views and ultrasound if indicated.
--- NOTE | 2020-10-22 17:45 | BD ---
EXAMINATION TYPE: Axial Bone Density DATE OF EXAM: 10/21/2020 COMPARISON: NONE CLINICAL HISTORY: 65-year-old female postmenopausal screening Height: 59.5 IN Weight: 100 LBS FRAX RISK QUESTIONS: Family History (Parent hip fracture): YES FATHER RISK FACTORS HISTORY OF: Active: YES Postmenopausal woman: AGE 46 MEDICATIONS: Additional Medications: DIABETES MEDS, EXAM MEASUREMENTS: Bone mineral densitometry was performed using the [employer] System. Bone mineral density as measured about the Lumbar spine is: ----- L1-L4(G/cm2): 1.405 T Score Values are as follows: ----- L2: 1.8 ----- L3: 1.6 ----- L4: 2.4 ----- L1-L4: 1.9 Bone mineral density BASELINE Bone mineral density about the R hip (g/cm2): 1.028 Bone mineral density about the L hip (g/cm2): 1.037 T Score values are as follows: -----R Neck: -0.1 -----L Neck: 0.0 -----R Total: -0.5 -----L Total: -0.4 Bone mineral density BASELINE IMPRESSION: Normal (Values between +1 and -1 indicate normal bone mass). Consider repeating this study in 5 year s or sooner if there is some new clinical indication. NOTE: T-SCORE=SD OF THE YOUNG ADULT MEAN.
== END | disposition home or self-care (01) ==
LOC: RADMAMWWP 15:31
PROVIDERS: ATTEND Family Medicine
DX: Z12.31 Encounter for screening mammogram for malignant neoplasm of breast (principal); Z13.820 Encounter for screening for osteoporosis; Z78.0 Asymptomatic menopausal state
CPT/HCPCS: 77067; 77080

== ENCOUNTER → 2020-10-30 | Outpatient (CLI) | payer OTHER ==
--- NOTE | 2020-10-30 11:36 | MM ---
Reason for exam: additional evaluation requested from abnormal screening. Last mammogram was performed less than 1 month ago. History: Patient is postmenopausal. Took hormonal contraceptives for 5 years beginning at age 19. Physical Findings: Nurse did not find any significant physical abnormalities on exam. MG Work Up Mamm w CAD LT Spot compression MLO, spot compression CC, and LM view(s) were taken of the left breast. Prior study comparison: October 21, 2020, bilateral MG screening mammo w CAD. The breast tissue is extremely dense which could obscure a lesion on mammography. CC compresses, may be persistent on MLO. No significant new findings when compared with previous films. These results were verbally communicated with the patient and result sheet given to the patient on 10/30/20. ASSESSMENT: Probably benign, BI-RAD 3 RECOMMENDATION: Follow-up diagnostic mammogram of the left breast in 6 months.
== END | disposition home or self-care (01) ==
LOC: RADMAMWWP 08:31
PROVIDERS: ATTEND Family Medicine
DX: R92.8 Other abnormal and inconclusive findings on diagnostic imaging of breast (principal)
CPT/HCPCS: 77065

== ENCOUNTER → 2020-11-09 | Outpatient (CLI) | payer OTHER ==
--- NOTE | 2020-11-10 11:11 | NM ---
EXAMINATION TYPE: NM thyroid image w uptake DATE OF EXAM: 11/10/2020 COMPARISON: NONE HISTORY: Hypothyroidism TECHNIQUE: Thyroid iodine uptake is calculated and images performed after the oral administration of 289 uCi 1-123 Capsule. FINDINGS: There is normal distribution of activity throughout the gland. The 4 hour iodine uptake is calculated at 11.1% (normal range 8-14%). The 24-hour iodine uptake is calculated at 36.5% (normal r brad 15-35%). IMPRESSION: 1. No definite hot or cold defects. There is asymmetry in uptake greater uptake noted involving the l eft thyroid. 24-hour uptake is slightly above normal limits compatible with borderline hyperthyroidis m.
== END | disposition home or self-care (01) ==
LOC: RADNMMAIN 11-04 08:36
PROVIDERS: ATTEND Family Medicine
DX: R93.89 Abnormal findings on diagnostic imaging of other specified body structures (principal); E03.9 Hypothyroidism, unspecified
CPT/HCPCS: 78014; A9516

== ENCOUNTER → 2021-10-22 | Outpatient (CLI) | payer OTHER ==
--- NOTE | 2021-10-22 13:37 | MM ---
Reason for exam: additional evaluation requested from prior study. Last mammogram was performed 1 year ago. History: Patient is postmenopausal. Took hormonal contraceptives for 5 years beginning at age 19. Physical Findings: Nurse did not find any significant physical abnormalities on exam. MG Diagnostic Mammo w CAD KRISTY Bilateral CC and MLO view(s) were taken. Prior study comparison: October 30, 2020, left breast MG work up mamm w CAD LT. October 21, 2020, bilateral MG screening mammo w CAD. The breast tissue is heterogeneously dense. This may lower the sensitivity of mammography. Stable benign calcifications. There is no discrete abnormality. No significant new findings when compared with previous films. These results were verbally communicated with the patient and result sheet given to the patient on 10/22/21. ASSESSMENT: Benign, BI-RAD 2 RECOMMENDATION: Routine screening mammogram of both breasts in 1 year.
== END | disposition home or self-care (01) ==
LOC: RADMAMWWP 12:29
PROVIDERS: ATTEND Family Medicine
DX: R92.8 Other abnormal and inconclusive findings on diagnostic imaging of breast (principal); Z78.0 Asymptomatic menopausal state
CPT/HCPCS: 77066

== ENCOUNTER → 2024-01-05 | Outpatient (CLI) | payer OTHER ==
--- NOTE | 2024-01-08 11:54 | BD ---
EXAMINATION TYPE: Axial Bone Density DATE OF EXAM: 01/05/2024 CLINICAL HISTORY: 68 years old Female. ICD-10 CODE: Z78.0 POST MENOPAUSAL Height: 59.2 in Weight: 112 lbs FRAX RISK QUESTIONS: Family History (Parent hip fracture): yes father Secondary Osteoporosis: 2. Hyperthyroidism: yes 3. Menopause before 45: age 56 RISK FACTORS MEDICATIONS: Thyroid Medications: yes Which medication: How Lon year EXAM MEASUREMENTS: Bone mineral densitometry was performed using the [employer] System. Bone mineral density as measured about the Lumbar spine is: ----- L1-L4(G/cm2): 1.436 T Score Values are as follows: ----- L1: 1.6 ----- L2: 2.1 ----- L3: 2.2 ----- L4: 2.3 ----- L1-L4: 2.1 Z Score Values are as follows: ----- L1: 3.7 ----- L2: 4.2 ----- L3: 4.4 ----- L4: 4.4 ----- L1-L4: 4.2 Bone mineral density has: Increased 2.2% since study of: 10/21/2020 Bone mineral density about the R hip (g/cm2): 0.922 Bone mineral density about the L hip (g/cm2): 0.954 T Score values are as follows: -----R Neck: -0.1 -----L Neck: 0.0 -----R Total: -0.7 -----L Total: -0.4 Z Score values are as follows: -----R Neck: 1.8 -----L Neck: 1.9 -----R Total: 1.0 -----L Total: 1.3 Bone mineral density has: Decreased -1.5% since study of: 10/21/2020 FRAX%s: The graph provided illustrates a 11.6% chance for a major osteoporotic fx and a 0.5% chance f or the hips probability for fx in 10 years time. IMPRESSION: Normal (Values between +1 and -1 indicate normal bone mass). Consider repeating this study in 5 year s or sooner if there is some new clinical indication. NOTE: T-SCORE=SD OF THE YOUNG ADULT MEAN.
--- NOTE | 2024-01-08 19:28 | MM ---
Reason for Exam: Screening (asymptomatic). Last mammogram was performed 2 year(s) and 3 month(s) ago. Patient History: Menarche at age 13. First Full-Term at age 24. Postmenopausal. Hormonal Contraceptives for 5 years from age 19 until age 24. Risk Values: Jacqueline 5 year model risk: 1.5%. NCI Lifetime model risk: 5.2%. Prior Study Comparison: 10/21/2020 Bilateral Screening Mammogram, [facility]. 10/30/2020 Left Diagnostic Mammogram, [facility]. 10/22/2021 Bilateral Diagnostic Mammogram, [facility]. Tissue Density: The breasts are heterogeneously dense, which may obscure small masses. Findings: Analyzed By CAD. Benign bilateral vascular calcifications. Unchanged appearance of asymmetric density. There is no suspicious group of microcalcifications or new suspicious mass in either breast. Overall Assessment: Benign, BI-RAD 2 Management: Screening Mammogram of both breasts in 1 year. . Patient should continue monthly self-breast exams. A clinical breast exam by your physician is recommended on an annual basis. This exam should not preclude additional follow-up of suspicious palpable abnormalities. Note on Jacqueline scores and lifetime risk: 1. A Jacqueline score greater than 3% is considered moderate risk. If this is the case, consider specialist referral to assess eligibility for a risk reducing agent. 2. If overall lifetime risk for the development of breast cancer is 20% or higher, the patient may qualify for future screening with alternating mammogram and breast MRI. Electronically signed and approved by: Cammie Hampton M.D. Radiologist
== END | disposition home or self-care (01) ==
LOC: RADMAMWWP 09:40
PROVIDERS: ATTEND Family Medicine
DX: Z12.31 Encounter for screening mammogram for malignant neoplasm of breast (principal); Z78.0 Asymptomatic menopausal state
CPT/HCPCS: 77063; 77067; 77080

== ENCOUNTER → 2025-02-28 | Outpatient (CLI) | payer OTHER ==
--- NOTE | 2025-02-28 09:36 | MM ---
Reason for Exam: Screening (asymptomatic). Last mammogram was performed 1 year(s) and 1 month(s) ago. Patient History: Menarche at age 13. First Full-Term at age 24. Postmenopausal. Hormonal Contraceptives for 5 years from age 19 until age 24. Risk Values: Jacqueline 5 year model risk: 1.5%. NCI Lifetime model risk: 4.8%. Prior Study Comparison: 10/30/2020 Left Diagnostic Mammogram, [facility]. 10/22/2021 Bilateral Diagnostic Mammogram, [facility]. 01/05/2024 Bilateral MG 3D screening mammo w/cad, [facility]. Tissue Density: The breasts are heterogeneously dense, which may obscure small masses. Findings: Analyzed By CAD. Right breast: There is no suspicious group of microcalcifications or new suspicious mass. Left breast: There is no suspicious group of microcalcifications or new suspicious mass. Overall Assessment: Negative, BI-RAD 1 Management: Screening Mammogram of both breasts in [address] [facility] will attempt to contact patient to return for supplemental views and ultrasound if indicated. Patient should continue monthly self-breast exams. A clinical breast exam by your physician is recommended on an annual basis. This exam should not preclude additional follow-up of suspicious palpable abnormalities. Note on Jacqueline scores and lifetime risk: 1. A Jacqueline score greater than 3% is considered moderate risk. If this is the case, consider specialist referral to assess eligibility for a risk reducing agent. 2. If overall lifetime risk for the development of breast cancer is 20% or higher, the patient may qualify for future screening with alternating mammogram and breast MRI. [facility], , 02/28/2025 9:34 AM. Electronically signed and approved by: Huey Evans DO
== END | disposition home or self-care (01) ==
LOC: RADMAMWWP 08:31
PROVIDERS: ATTEND Family Medicine
DX: Z12.31 Encounter for screening mammogram for malignant neoplasm of breast (principal); R92.333 Mammographic heterogeneous density, bilateral breasts; Z78.0 Asymptomatic menopausal state; Z92.0 Personal history of contraception
CPT/HCPCS: 77063; 77067